=== PATIENT | male | born 1980 | race Hispanic/Latino ===

== ENCOUNTER 2020-03-27 14:19 | Inpatient (IN) | payer OTHER ==
[~2020-03-27] VITALS: Ht 175.3 cm; Wt 76.6 kg
[2020-03-27 15:05] LABS: BASOPHILS % (AUTO) 0.3 % (0.0-5.0); EOSINOPHILS % (AUTO) 0.2 % (0.0-8.0); HEMATOCRIT 48.8 % (42-54); LYMPHOCYTES % (AUTO) 23.9 % (21.0-51.0); MEAN CORPUSCULAR HGB CONC 34.6 g/dL (32.0-36.0); MEAN CORPUSCULAR VOLUME 89.5 fL (79-99); NEUTROPHILS % (AUTO) 67.4 % (40.0-77.0); PLATELET COUNT (AUTO) 144 K/uL (130-400); RED BLOOD CELL COUNT(AUTO) 5.45 MIL/uL (4.50-6.20); RED CELL DISTRIBUTION WIDTH 12.5 % (11.0-15.5); WHITE BLOOD COUNT (AUTO) 5.7 K/uL (4.8-10.8)
[2020-03-27 15:12] LABS: CREATININE 1.4 mg/dL (0.5-1.5); POTASSIUM 3.7 mmol/L (3.5-5.1)
[2020-03-27 15:13] LABS: INR 1.12 (0.85-1.15); PARTIAL THROMBOPLASTIN TIME 27.8 SEC (26.3-35.5)
[2020-03-27 15:17] LABS: ALBUMIN 4.3 g/dL (3.5-5.0); BILIRUBIN,TOTAL 0.5 mg/dL (0.2-1.0); TOTAL PROTEIN, SERUM 8.1 g/dL (6.0-8.3)
[2020-03-27] MEDS ORDERED: HYDRALAZINE HCL 20 MG/ML VIAL IV PRN (17:15)
[2020-03-27] MEDS ORDERED: SODIUM CHLORIDE 0.9% 1000ML 1,000 ML IV SCH (17:15)
[2020-03-27] MEDS ORDERED: IOHEXOL-350 75 ML VIAL IV ONE (17:36)
[2020-03-27 17:45] LABS: APPEARANCE,URINE Clear (CLEAR); BILIRUBIN,URINE Negative (NEGATIVE); COLOR,URINE Yellow (YELLOW); GLUCOSE, URINE (UA) Negative (NEGATIVE); KETONES,URINE Trace mg/dL (NEGATIVE); LEUKOCYTE ESTERASE ,URINE Trace (NEGATIVE); NITRATE,URINE Negative (NEGATIVE); OCCULT BLOOD,URINE Negative (NEGATIVE); PH,URINE 5.5 (5.0-8.0); PROTEIN,URINE Negative (NEGATIVE); UROBILINOGEN,URINE 0.2 mg/dL (0.2-1.0)
[2020-03-27 17:55] LABS: AMPHET/METH SCREEN,URINE NEGATIVE (NEGATIVE); BARBITURATE SCREEN, URINE NEGATIVE (NEGATIVE); BENZODIAZEPINES SCREEN,URINE NEGATIVE (NEGATIVE); CANNABINOID SCREEN,URINE NEGATIVE (NEGATIVE); COCAINE SCREEN,URINE NEGATIVE (NEGATIVE); OPIATE SCREEN,URINE NEGATIVE (NEGATIVE); PHENCYCLIDINE SCREEN,URINE NEGATIVE (NEGATIVE)
[2020-03-27 18:15] LABS: HEMOGLOBIN A1C 5.2 % (4.0-6.0)
[2020-03-27 18:33] LABS: CHOLESTEROL 148 mg/dL (<200); HDL CHOLESTEROL 40 mg/dL (29-71); LDL DIRECT 94 mg/dL (0-99); THYROID STIMULATING HORMONE 2.61 uIU/mL (0.36-3.74); TRIGLYCERIDES 70 mg/dL (30-200)
[2020-03-27 18:37] LABS: BACTERIA,URINE Rare /HPF (None Seen); RBC,URINE 0-1 /HPF (0-1); SQUAMOUS EPITHELIAL CELL,UR Rare /HPF (0-2)
[2020-03-27 18:40] LABS: ALCOHOL, BLOOD < 3 mg/dL (0-10)
[2020-03-27] MEDS ORDERED: ATORVASTATIN CALCIUM 20 MG TABLET ONE (20:48)
[2020-03-27] MEDS: ATORVASTATIN CALCIUM 20 MG TABLET PO SCH (21:00)
[2020-03-28 05:38] LABS: BASOPHILS % (AUTO) 0.4 % (0.0-5.0); HEMATOCRIT 46.6 % (42-54); MEAN CORPUSCULAR HEMOGLOBIN 30.6 pg (27.0-33.0); MEAN CORPUSCULAR HGB CONC 33.9 g/dL (32.0-36.0); MEAN CORPUSCULAR VOLUME 90.1 fL (79-99); MONOCYTES % (AUTO) 7.1 % (3.0-13.0); NEUTROPHILS % (AUTO) 68.3 % (40.0-77.0); PLATELET COUNT (AUTO) 122 K/uL (130-400); RED BLOOD CELL COUNT(AUTO) 5.17 MIL/uL (4.50-6.20); RED CELL DISTRIBUTION WIDTH 12.5 % (11.0-15.5); WHITE BLOOD COUNT (AUTO) 8.3 K/uL (4.8-10.8)
[2020-03-28 05:50] LABS: CREATININE 1.3 mg/dL (0.5-1.5); MAGNESIUM 1.9 mg/dL (1.80-2.40); POTASSIUM 3.9 mmol/L (3.5-5.1)
[2020-03-28] MEDS ORDERED: ASPIRIN 81MG TAB.CHEW ONE (08:01)
[2020-03-28] MEDS: ASPIRIN 81MG TAB.CHEW PO SCH (09:00)
[2020-03-28 09:40] VITALS: BP 131/87
--- NOTE | 2020-03-28 09:40 | NUR ---
DYSPHAGIA RACHAEL COMPLETED. S/S OF ASPIRATION AT THIS TIME. RECOMMEND REGULAR SOLIDS, THIN LIQUIDS, AND PILLS WHOLE WITH LIQUIDS TOLERATED. TOOL OPERATOR EDUCATED Pt ON RISKS AND CONSEQUENCES OF ASPIRATION. TOOL OPERATOR COORDINATED WITH NURSE THOM. Addendum: 03/28/[address] JOSE Amended: Links added.
[2020-03-28 11:43] VITALS: BP 123/74
[2020-03-28] MEDS ORDERED: ALPRAZOLAM 1 MG TAB ONE (13:58)
[2020-03-28] MEDS: ALPRAZOLAM 1 MG TAB PO SCH ×2 (14:16→20:42)
[2020-03-28 16:41] VITALS: BP 119/75
[2020-03-28 19:26] VITALS: BP 106/66
[2020-03-28] MEDS: ATORVASTATIN CALCIUM 20 MG TABLET PO SCH (20:42)
[2020-03-28 23:33] VITALS: BP 104/66
[2020-03-29 04:00] VITALS: BP 109/71
[2020-03-29 08:00] VITALS: BP 109/60
[2020-03-29] MEDS: ALPRAZOLAM 1 MG TAB PO SCH ×2 (10:20→13:41)
[2020-03-29] MEDS: ASPIRIN 81MG TAB.CHEW PO SCH (10:20)
--- NOTE | 2020-03-29 10:55 | NUR ---
DC PLAN VISITED WITH PATIENT. PATIENT LIVES ALONE IN [place]. DOWN VISITING WITH PARENTS. WILL STAY WITH THEM LONG HE NEEDS HELP. NO SERVICES OR DME'S. FEELS SAFE TO RETURN HOME. Addendum: 03/29/20 at 1058 by MARIA TERESA TIAN RN CM Amended: Links added.
[2020-03-29 11:00] VITALS: BP 104/67
--- NOTE | 2020-03-29 13:41 | NUR ---
PT DROWSY FROM XANAX DOES TAKEN THIS AM AND WANTING TO JUST SLEEP RIGHT NOW; DOSE DUE NOW HELD
[2020-03-29] MEDS ORDERED: ALPRAZOLAM 1 MG TAB PO PRN (14:30)
[2020-03-29 16:00] VITALS: BP 109/73
[2020-03-29 19:41] VITALS: BP 104/75
[2020-03-29] MEDS: ATORVASTATIN CALCIUM 20 MG TABLET PO SCH (21:07)
[2020-03-29] MEDS: CARVEDILOL 3.125 MG TABLET PO SCH (21:08)
[2020-03-29 23:57] VITALS: BP 109/65
[2020-03-30 04:00] VITALS: BP 109/65
[2020-03-30 08:00] VITALS: BP 101/54
[2020-03-30] MEDS ORDERED: CARV3.1262 PO (08:36)
[2020-03-30] MEDS ORDERED: ATOR20TA65 PO (08:36)
[2020-03-30] MEDS ORDERED: ASPI-1005 PO (08:36)
[2020-03-30] MEDS: CARVEDILOL 3.125 MG TABLET PO SCH ×2 (10:04→21:33)
[2020-03-30] MEDS: ASPIRIN 81MG TAB.CHEW PO SCH (10:04)
[2020-03-30 11:00] VITALS: BP 99/66
--- NOTE | 2020-03-30 11:21 | NUR ---
cm note spoke to pt regarding orders for [facility], pt in agreement, choice letter signed. referral faxed to [facility] and spoke to alesia barrera [phone]. and states will followup as soon as received.
[2020-03-30] MEDS ORDERED: ALPRAZOLAM 1 MG TAB PO PRN (12:15)
[2020-03-30] MEDS ORDERED: ALPRAZOLAM 0.5 MG TABLET ONE (14:44)
[2020-03-30 16:00] VITALS: BP 117/61
[2020-03-30 16:58] LABS: BASOPHILS % (AUTO) 0.3 % (0.0-5.0); EOSINOPHILS % (AUTO) 17.2 % (0.0-8.0); HEMATOCRIT 46.4 % (42-54); LYMPHOCYTES % (AUTO) 19.6 % (21.0-51.0); MEAN CORPUSCULAR HEMOGLOBIN 30.6 pg (27.0-33.0); MEAN CORPUSCULAR HGB CONC 34.1 g/dL (32.0-36.0); MEAN CORPUSCULAR VOLUME 89.7 fL (79-99); MONOCYTES % (AUTO) 5.3 % (3.0-13.0); NEUTROPHILS % (AUTO) 57.5 % (40.0-77.0); PLATELET COUNT (AUTO) 121 K/uL (130-400); RED BLOOD CELL COUNT(AUTO) 5.17 MIL/uL (4.50-6.20); RED CELL DISTRIBUTION WIDTH 12.4 % (11.0-15.5); WHITE BLOOD COUNT (AUTO) 7.2 K/uL (4.8-10.8)
[2020-03-30 17:18] LABS: INR 1.15 (0.85-1.15); PARTIAL THROMBOPLASTIN TIME 30.8 SEC (26.3-35.5); PROTHROMBIN TIME 12.4 SEC (9.6-11.6)
[2020-03-30 17:21] LABS: ALBUMIN 4.1 g/dL (3.5-5.0); BILIRUBIN,TOTAL 0.3 mg/dL (0.2-1.0); CREATININE 1.3 mg/dL (0.5-1.5); MAGNESIUM 2.4 mg/dL (1.80-2.40); POTASSIUM 3.9 mmol/L (3.5-5.1); TOTAL PROTEIN, SERUM 7.5 g/dL (6.0-8.3)
[2020-03-30 20:12] VITALS: BP 108/65
[2020-03-30] MEDS: ATORVASTATIN CALCIUM 20 MG TABLET PO SCH (21:33)
[2020-03-31 00:12] VITALS: BP 106/66
[2020-03-31 04:12] VITALS: BP 105/64
[2020-03-31 08:00] VITALS: BP 103/53
[2020-03-31] MEDS: ASPIRIN 81MG TAB.CHEW PO SCH (09:44)
[2020-03-31] MEDS: CARVEDILOL 3.125 MG TABLET PO SCH ×2 (09:44→21:33)
[2020-03-31] MEDS: APIXABAN 5 MG TABLET PO SCH ×2 (10:34→21:32)
[2020-03-31 11:00] VITALS: BP 106/58
[2020-03-31] MEDS: ALPRAZOLAM 0.5 MG TABLET PO PRN (11:49)
[2020-03-31 16:00] VITALS: BP 100/55
[2020-03-31 20:16] VITALS: BP 105/66
[2020-03-31] MEDS ORDERED: VENLAFAXINE HCL 75 MG TAB PO SCH (21:00)
[2020-03-31] MEDS: ATORVASTATIN CALCIUM 20 MG TABLET PO SCH (21:33)
[2020-04-01 00:24] VITALS: BP 124/82
[2020-04-01] MEDS: ALPRAZOLAM 0.5 MG TABLET PO PRN ×2 (01:49→12:13)
[2020-04-01 04:24] VITALS: BP 118/78
[2020-04-01 08:14] VITALS: BP 115/81
[2020-04-01] MEDS: APIXABAN 5 MG TABLET PO SCH (08:41)
[2020-04-01] MEDS: CARVEDILOL 3.125 MG TABLET PO SCH (08:42)
[2020-04-01] MEDS: ASPIRIN 81MG TAB.CHEW PO SCH (08:42)
--- NOTE | 2020-04-01 09:20 | NUR ---
FOLLOW UP COMPLETED DISTRIBUTION DISPATCHER COORDINATED WITH NURSE MEZA. Pt TOLERATING DIET RECOMMENDATIONS WITH NO S/S OF ASPIRATION AT THIS TIME. CONTINUE WITH PLAN OF CARE TOLERATED. Addendum: 04/01/[address] ADRIANNE GARCIA Amended: Links added.
[2020-04-01 11:37] VITALS: BP 106/76
[2020-04-01] MEDS ORDERED: HYD25 PO (15:18)
--- NOTE | 2020-04-01 17:00 | NUR ---
DISCHARGE PATIENT GIVEN DISCHARGE INSTRUCTIONS AND EDUCATION ON FOLLOW UP APPOINTMENTS WITH CARDIOLOGY, NEURO, AND PSYCH, PRESCRIBED MEDICATIONS, AND LIFE VEST USE. PATIENT VERBALIZED UNDERSTANDING OF ALL EDUCATION GIVEN VIA TEACH BACK. NO DISTRESS NOTED UPON DISCHARGE. ALL BELONGINGS TAKEN WITH. PATIENT WAS ADVICES PER DR BOOGIE BUCKLEY THAT HE CAN GO TOMORROW TO THE PHARMACY TO GET HIS MEDICATIONS. PATIENT HAS BEEN VERY ANXIOUS SINCE HE RECEIVED HIS DIAGNOSIS, XANAX GIVEN FOR ANXIETY.
== END 2020-04-01 17:40 | disposition home or self-care (01) | DRG 65 ==
LOC: EDH 14:19 → EDHIP 17:01 → 3DH 03-28 09:22
PROVIDERS: ADMIT Internal Medicine; ATTEND Internal Medicine
DX: I63.9 Cerebral infarction, unspecified (principal); I42.0 Dilated cardiomyopathy; I50.20 Unspecified systolic (congestive) heart failure; I25.5 Ischemic cardiomyopathy; F39 Unspecified mood [affective] disorder; F41.1 Generalized anxiety disorder; F41.0 Panic disorder [episodic paroxysmal anxiety]; F43.22 Adjustment disorder with anxiety; R47.81 Slurred speech; Z86.73 Personal history of transient ischemic attack (TIA), and cerebral infarction without residual deficits; Z82.49 Family history of ischemic heart disease and other diseases of the circulatory system
CPT/HCPCS: 36415; 70450; 70496; 70498; 70551; 71045; 80048; 80053; 80061; 80305; 81001; 82550; 83036; 83721; 83735; 84443; 84484; 85025; 85610; 85651; 85730; 92610; 93005; 93306; 93356; 93880; G0378; G0480; Q9967